=== PATIENT | female | born 1960 | race Caucasian/White ===

== ENCOUNTER 2019-05-04 08:26 | Outpatient (CLI) | payer OTHER | END 2019-05-04 23:59 | disposition home or self-care (01) | LOC: CFH 08:26 | PROVIDERS: ATTEND Internal Medicine | DX: C18.9 Malignant neoplasm of colon, unspecified (principal); D64.9 Anemia, unspecified | CPT/HCPCS: 82565; Q9967 ==

== ENCOUNTER 2019-05-16 10:19 | Outpatient (CLI) | payer OTHER | END 2019-05-16 23:59 | disposition home or self-care (01) | LOC: STAR 10:19 | PROVIDERS: ATTEND Surgery | DX: Z01.818 Encounter for other preprocedural examination (principal) | CPT/HCPCS: 93005 ==

== ENCOUNTER 2019-05-25 06:55 | Inpatient (IN) | payer OTHER ==
[~2019-05-25] VITALS: Ht 165.1 cm; Wt 75.0 kg
[2019-05-27 14:28] VITALS: BP 115/63
== END 2019-05-27 15:10 | disposition home or self-care (01) | DRG 329 ==
LOC: ORIP 06:55 → EDSTATUS 09:00 → 4NOR 12:11 → DCLOUNGE 05-27 14:55
PROVIDERS: ADMIT Surgery; ATTEND Surgery
PROC: 0DTF0ZZ Resection of Right Large Intestine, Open Approach (ICD-10-PCS; principal; 2019-05-25)
PROC: 0DBU0ZZ Excision of Omentum, Open Approach (ICD-10-PCS; 2019-05-25)
DX: C18.4 Malignant neoplasm of transverse colon (principal); E43 Unspecified severe protein-calorie malnutrition; M19.90 Unspecified osteoarthritis, unspecified site; M81.0 Age-related osteoporosis without current pathological fracture; D50.9 Iron deficiency anemia, unspecified; F17.210 Nicotine dependence, cigarettes, uncomplicated; Z88.0 Allergy status to penicillin; Z79.899 Other long term (current) drug therapy
CPT/HCPCS: 36415; J3490; 80048; 82040; 85025; 88307; 88309; G0378; J1100; J1650; J2250; J2405; J2704; J3010; J0330; J2270; J3480; J7120; Q0163